=== PATIENT | male | born 2000 | race African-American/Black ===

== ENCOUNTER 2019-08-17 01:13 | Emergency (ER) | payer OTHER ==
[~2019-08-17] VITALS: Ht 170.2 cm; Wt 68.2 kg
[~2019-08-17 01:13] MED LIST: LORA10TA57 PO
[2019-08-17 03:00] VITALS: BP 124/68
== END 2019-08-17 03:25 | disposition home or self-care (01) ==
LOC: EMS 01:14
DX: L25.8 Unspecified contact dermatitis due to other agents (principal); F12.90 Cannabis use, unspecified, uncomplicated

== ENCOUNTER 2022-12-12 20:56 | Emergency (ER) | payer OTHER ==
[~2022-12-12] VITALS: Ht 170.2 cm; Wt 72.7 kg
[2022-12-12 21:17] VITALS: BP 127/87
[2022-12-12] MEDS ORDERED: IBUPROFEN 600 MG TABLET PO ONE (21:30)
[2022-12-12] MEDS ORDERED: BACLOFEN 10 MG TABLET PO ONE (21:30)
[2022-12-12] MEDS ORDERED: IBUP-1554 PO (23:14)
[2022-12-12] MEDS ORDERED: BACL10TA PO (23:14)
== END 2022-12-12 23:59 | disposition home or self-care (01) ==
LOC: EMS 20:57
DX: S13.4XXA Sprain of ligaments of cervical spine, initial encounter (principal); V09.9XXA Pedestrian injured in unspecified transport accident, initial encounter; Y93.89 Activity, other specified; Y92.811 Bus as the place of occurrence of the external cause; Y99.8 Other external cause status
CPT/HCPCS: 72040; 99283